=== PATIENT | female | born 1955 | race Caucasian/White ===

== ENCOUNTER → 2017-07-18 08:32 | Outpatient (CLI) | payer BC, SELFPAY ==
--- NOTE | 2017-07-18 08:38 | US_ITS ---
US Kidney(s) complete (eg, kidneys T bladder) INDICATION: low back pain , hematuria COMPARISON: None TECHNIQUE: Ultrasonographic grayscale and limited Doppler investigation of the retroperitoneum including kidneys and urinary bladder FINDINGS: The right kidney measures 10.5 x 4.4 x 5.1 cm with a cortical thickness of 1.4 cm. There is no evidence of hydronephrosis, cyst, or shadowing calculus. The left kidney measures 10.4 x 4.7 x 5.1 cm with a cortical thickness of 1.8 cm. A 1 cm cortical cyst is noted. 2 calculi are seen, measuring 3 mm and 4 mm. There is no evidence of hydronephrosis. The urinary bladder is physiologically distended at the time of the examination and contains 183 mL. The urinary bladder wall appears within normal limits. US/Kidney and Bladder IMPRESSION: Small left cortical renal cyst. 2 left renal calculi measuring 3 mm and 4 mm. No evidence of hydronephrosis. If hematuria persists, consider further evaluation with CT urogram to rule out mass. at 1751 Reported and signed by: Yoly Naranjo MD Electronically Signed: Yoly Naranjo MD at 17:50 EDT Tel , Service support ,
== END ==
PROVIDERS: Family Provider Family Medicine; PCP Family Medicine; Visit Provider Family Medicine
DX: M54.5 Low back pain (principal); R31.9 Hematuria, unspecified
CPT/HCPCS: 76770

== ENCOUNTER → 2017-08-01 07:04 | Outpatient (CLI) | payer BC, SELFPAY ==
--- NOTE | 2017-08-01 07:12 | CT_ITS ---
STUDY: CT ABDOMEN AND PELVIS WITH AND WITHOUT CONTRAST REASON FOR EXAM: Female, 62 years old. Six-month history of flank pain and microhematuria. RADIATION DOSAGE (If Supplied By Facility): CTDIvol = ( 10.77 ) mGy, DLP = ( 771.76 ) mGycm TECHNIQUE: Transaxial images were obtained from the dome of the diaphragm to the symphysis pubis without oral contrast. 100CC ml of Isovue 250 contrast was administered. Sagittal and coronal images were reconstructed. Individualized dose optimization techniques were used for this CT. COMPARISON: Comparison is made with prior study dated October 22, 2006. FINDINGS: Minimal degree of bibasilar atelectasis. The visualized portions of the heart are within normal limits. 1 cm cyst in the anterior aspect of the left lobe of the liver. The patient is status post cholecystectomy. Normal spleen. Normal pancreas. Normal bilateral adrenal glands. Normal right kidney. 2 mm calculus in the upper pole calyx of the left kidney. Normal visualized stomach. Normal small intestine. Normal colon. The appendix is visualized and appears normal. There is scattered atherosclerotic calcification of the abdominal aorta, without a demonstrated aneurysm. Normal inferior vena cava. Normal retroperitoneum. Normal urinary bladder. Normal abdominal wall. There are mild degenerative changes of the visualized lumbar spine. CT/CT Abd/Pelvis W/WO Contrast IMPRESSION: 2 mm calculus in the upper pole of the left kidney. 1 cm cyst in the anterior aspect of the left lobe of the liver. Electronically Signed: Oneil Garcia MD at 14:40 EDT Tel [phone], Service support ,
[2017-08-01 07:25] LABS: CREATININE FINGERSTICK 0.9 mg/dL (0.55-1.02); EGFR FINGERSTICK > 60.0000 mL/min (>60)
== END ==
PROVIDERS: Family Provider Family Medicine; PCP Family Medicine; Visit Provider Nurse Practitioner Adult Health
DX: R31.29 Other microscopic hematuria (principal); R10.9 Unspecified abdominal pain; N20.0 Calculus of kidney
CPT/HCPCS: 74178; Q9967

== ENCOUNTER → 2020-04-15 10:25 | Outpatient (CLI) | payer BC, SELFPAY ==
[2020-04-15 12:58] LABS: Cholesterol 188 mg/dL (200); Glucose 92 mg/dL (74-106); High Density Lipoprotein 58 mg/dL; Triglycerides 86 mg/dL; Very Low Density Lipoprotein 17 mg/dL (5-40)
== END ==
PROVIDERS: PCP Family Medicine; Visit Provider Family Medicine
DX: E78.5 Hyperlipidemia, unspecified (principal)
CPT/HCPCS: 36415; 80061; 82947

== ENCOUNTER → 2024-04-15 | Outpatient (CLI) | payer OTHER, SELFPAY ==
[2024-04-15 11:10] LABS: Creatinine, Serum 0.89 mg/dL (0.55-1.02); EST Glomerular Filtration Rate 67 mL/min (>60); Est Glom Filt Rate - Afr Amer 81 mL/min (>60)
== END | disposition home or self-care (01) ==
PROVIDERS: PCP Family Medicine; Referring Provider Specialist; Visit Provider Specialist
DX: N28.9 Disorder of kidney and ureter, unspecified (principal)
CPT/HCPCS: 36415; 82565